=== PATIENT | male | born 1930 | race Caucasian/White ===

== ENCOUNTER → 2016-04-02 | Outpatient (CLI) | payer OTHER, BC ==
[~2016-04-02] MED LIST: ACCUNEB SO1.25 MG/1 NASAL; ACETAMINOPHEN325 M1 PO; ACETYLCYST200 MG/1 M INH; ADULT LOW DOSE81 MG PO; ALBUTEROL2.5 MG/0.5 INH; AMBIEN 5 MG TABL5 M1 PO; AMITRIPTYLINE H10 M1 PO; AMITRIPTYLINE H50 M2 PO; AUGMENTIN 500-1 EACH PO; BACLOFEN 10 MG10 MG PO; BACTRIM DS TAB1 EACH PO; CALCIUM 500 +1 EAC5 PO; CALCIUM OR; CARDIZEM CD180 MG PO; CEFTIN 250 MG250 MG PO; CELEBREX 200 M200 MG PO; CLARITIN10 M2 PO; COLACE100 MG PO; COMBIVENT INH; COMBIVENT NASAL; COMPAZINE5 MG PO; COUMADIN 4 MG TA4 M1 PO; DEMADEX 2020 MG/1 TA PO; DEMADEX20 MG PO; DETROL LA4 MG PO; DILAUDID 2 MG TA2 MG PO; DILAUDID 4 MG TA4 M1 PO; DILTIAZEM ER180 M1 PO; DOXYCYCLINE 10100 M1 PO; DOXYCYCLINE 10100 MG PO; ERYTHROMYCIN250 MG PO; FLOMAX0.4 MG PO; FLONASE 0.05%50 MCG NASAL; HYDROCODONE-AP1 EA11 PO; HYDROCODONE-AP1 EA14 PO; HYDROCODONE-AP1 EAC6 PO; IPRATROPIU0.2 MG/1 M INH; LASIX 40 MG TAB40 M2 PO; LIDODERM 5%1 PATC1 TRANSDERM; LIPITOR 20 MG T20 M1 PO; LIPITOR20 MG PO; LISINOPRIL5 MG PO; LOPRESSOR25 PO; LOTENSIN20 MG PO; LOZENGES1 EACH PO; LUTEIN10 MG PO; MEDROL DOSPAK21 TAB PO; MELOXICAM7.5 MG PO; METHADONE HCL 110 M1 PO; METHADONE HCL5 MG PO; METHIMAZOLE5 MG PO; MINOCYCLINE HCL50 M1 PO; MIRALAX PO; MIRALAX17 GM PO; MIRALAX255 GM PO; MOBIC7.5 M1 PO; MOBIC7.5 MG PO; MUCINEX TA600 MG/TA2 PO; MULTIVITAMINS PO; NETIPOT IRRIG; NEURONTIN 300300 M1 PO; NORCO 10-325 T1 EACH PO; NORCO 5-325 TA1 EACH PO; ONDANSETRON HCL4 M3 PO; OXYCODONE HCL15 MG PO; OXYCONTIN PO; OXYCONTIN10 M1 PO; OXYCONTIN15 MG PO; OXYCONTIN20 MG OR; OXYCONTIN20 MG PO; OXYCONTIN30 MG PO; PEPCID40 MG PO; PHENERGAN 25 MG25 M1 PO; PREDNISONE 10 M10 M1 PO; PREDNISONE 20 M20 M1 PO; PREDNISONE 20 M20 MG PO; PREDNISONE 5 MG5 M1 PO; PREDNISONE10 MG PO; PREVACID DIS; PREVACID OR; PROAIR HFA8.5 GM INH; PROTONIX40 M2 PO; PROVENTIL; RELAFEN PO; RELAFEN500 MG OR; RELAFEN500 MG PO; SENOKOT-S1 TA1 PO; SYMBICORT160 MCG/4. NASAL; TEARS NATURALE1 EACH OPHTHALMIC; TYLENOL325 MG PO; VITAMIN B-6100 MG PO; VITAMIN D1000 UNI1 PO; XANAX 0.25 MG0.25 MG PO; XOPENEX 0.63 MG/3 M1 INH; ZOFRAN ODT4 MG PO; ZOLOFT OR; ZOLOFT25 MG PO; ZOLOFT50 MG PO
== END ==
LOC: RAD 14:13
DX: J18.9 Pneumonia, unspecified organism (principal); J98.11 Atelectasis; R91.8 Other nonspecific abnormal finding of lung field; J90 Pleural effusion, not elsewhere classified